=== PATIENT | female | born 1985 | race Caucasian/White ===

== ENCOUNTER 2018-01-08 23:25 | Emergency (ER) | payer OTHER ==
[2018-01-08 23:31] VITALS: BP 108/67
[2018-01-09] MEDS ORDERED: TETRACAINE HCL 0.5% OPH SOLN 2 ML OD ONE (00:52)
[2018-01-09] MEDS ORDERED: ERYTHROMYCIN 0.5% OPH OINTMENT 3.5 GM TUBE OS ONE (01:05)
--- NOTE | 2018-01-09 01:09 | ER Document Report ---
ED General - General Chief Complaint: Eye Injury Stated Complaint: EYE PAIN Time Seen by Provider: 01/09/18 00:44 Notes: Patient is a 32-year-old female who presents with complaints of accidentally getting water in her left eye. She immediately flushed the mortar out. She has some redness and irritation to the eye since then. She denies any other injuries or complaints. She said she has a little bit of blurred vision on the left lateral aspect of her visual field. She does not wear contacts. - Related Data Allergies/Adverse Reactions: No Known Allergies Allergy (Unverified 01/08/18 23:28) Past Medical History - Social History Smoking Status: Never Smoker Frequency of alcohol use: None Drug Abuse: None Family History: Reviewed & Not Pertinent Review of Systems - Review of Systems Notes: My Normal Review Basic REVIEW OF SYSTEMS: CONSTITUTIONAL : Denies fever, chills, or sweats. Denies recent illness. EENT: Left eye pain NEUROLOGICAL: Denies headache. ALL OTHER SYSTEMS REVIEWED AND NEGATIVE. Physical Exam - Vital signs Vitals: Temp Pulse Resp BP Pulse Ox 98.5 F 70 18 108/67 98 01/08/18 23:30 01/08/18 23:30 01/08/18 23:30 01/08/18 23:30 01/08/18 23:30 - Notes Notes: General Appearance: Well nourished, alert, cooperative, no acute distress, no obvious discomfort. Well-appearing. Vitals: reviewed, See vital signs table. Head: no swelling or tenderness to the head Eyes: PERRL, EOMI, right conjunctival is normal-appearing. Patient has mild erythema to the left conjunctival. Slit lamp examination does not show any evidence of foreign body. Corneas clear. Fluorescein staining does not show any evidence of significant abrasion or ulceration. PH of the left eye is between 7 and 8. Neuro: speech clear, oriented x 3, normal affect, responds appropriately to questions. Course - Re-evaluation Re-evalutation: 01/09/18 04:02 I the patient flushed her eyes several times in the ER. I checked her pH before she flushed her eyes and the pH was between 7 and 8. Denies any uptake in forcing staining. Patient's visual acuity does not have any concerning findings. I will have her follow-up with ophthalmology on Thursday. I will give her erythromycin ointment to use in her eye to help prevent infection. Patient encouraged to return to ER if she has worsening eye pain, increasing redness, abnormal discharge from the eye, or she has any further concerns. Patient agrees with plan and will be discharged home. Dictation of this chart was performed using voice recognition software; therefore, there may be some unintended grammatical errors. 01/09/18 04:08 - Vital Signs Vital signs: Temp Pulse Resp BP Pulse Ox 98.5 F 70 18 108/67 98 01/08/18 23:30 01/08/18 23:30 01/08/18 23:30 01/08/18 23:30 01/08/18 23:30 Discharge - Discharge Clinical Impression: Eye injury Qualifiers: Encounter type: initial encounter Laterality: left Qualified Code(s): S05.92XA - Unspecified injury of left eye and orbit, initial encounter Condition: Good Disposition: HOME, SELF-CARE Additional Instructions: Please apply a small amount of erythromycin ointment to your left eye 5 times a day for the next 5 days. Call the ophthamologist office thursday morning to make a follow up appointment on Thursday or Thursday. please return tot ER if you have increasing redness in your eye, abnormal drainage from your eye, or if you feel unwell. I have provided the phone number to two ophthamologists (Dr. Benton and Dr. Alvarado). Referrals: DAILY ALVARADO MD [ACTIVE STAFF] - 01/11/18 ULI BENTON DO [ACTIVE STAFF] - 01/11/18
[2018-01-09] MEDS ORDERED: ERYTHROMYCIN 0.5% OPH OINT 1 GM UNIT DOSE ONE (01:20)
[2018-01-09] MEDS ORDERED: ERYTHROMYCIN 0.5% OPH OINT 1 GM UNIT DOSE OS ONE (01:21)
== END 2018-01-09 01:30 | disposition home or self-care (01) ==
LOC: ER 23:25
DX: S05.92XA Unspecified injury of left eye and orbit, initial encounter (principal); X58.XXXA Exposure to other specified factors, initial encounter; H53.8 Other visual disturbances; H57.12 Ocular pain, left eye
CPT/HCPCS: 99283; J3490

== ENCOUNTER 2018-10-29 08:44 | Emergency (ER) | payer OTHER ==
[2018-10-29] MEDS ORDERED: ACETAMINOPHEN 325 MG TABLET PO ONE (10:13)
--- NOTE | 2018-10-29 10:33 | RADIOLOGY REPORT (SQ) ---
EXAM DESCRIPTION: ANKLE LEFT COMPLETE COMPLETED DATE/TIME: 10/29/2018 10:24 am REASON FOR STUDY: pain COMPARISON: None. NUMBER OF VIEWS: Three views. TECHNIQUE: AP, lateral, and oblique radiographic images acquired of the left ankle. LIMITATIONS: None. FINDINGS: MINERALIZATION: Normal. BONES: No acute fracture or dislocation. No worrisome bone lesions. JOINTS: No effusions. SOFT TISSUES: No soft tissue swelling. No foreign body. OTHER: No other significant finding. IMPRESSION: NEGATIVE STUDY OF THE LEFT ANKLE. NO RADIOGRAPHIC EVIDENCE OF ACUTE INJURY. TECHNICAL DOCUMENTATION: JOB ID: [id number]- All Rights Reserved Reading location - IP/workstation name: [email or web address]
--- NOTE | 2018-10-29 10:50 | ER Document Report ---
HPI - HPI Patient complains to provider of: Left ankle pain Time Seen by Provider: 10/29/18 10:12 Pain Level: 2 Context: Patient is a otherwise healthy 33-year-old female presents to the emergency department for left ankle pain. Patient states yesterday she was running when she feels as though she inverted her left ankle. States she felt a pop. Initially thought nothing of it but the pain has persisted which presents her to the emergency room. Patient denies any pain or injury to her left knee left hip, falling on her back or head. Patient's pain is generally in her left lateral malleolus. - CONSTITUTIONAL Constitutional: DENIES: Fever, Chills - REPRODUCTIVE LMP: 10/23/18 Reproductive: DENIES: : - MUSCULOSKELETAL Musculoskeletal: REPORTS: Extremity pain - left ankle Past Medical History - General Information source: Patient - Social History Smoking Status: Never Smoker Chew tobacco use (# tins/day): No Frequency of alcohol use: None Drug Abuse: None Family History: Reviewed & Not Pertinent Patient has suicidal ideation: No Patient has homicidal ideation: No Renal/ Medical History: Denies: Hx Peritoneal Dialysis Psychiatric Medical History: Reports: Hx Attention Deficit Hyperactivity Disorder, Hx Depression Vertical Provider Document - CONSTITUTIONAL Agree With Documented VS: Yes Notes: GENERAL: Alert, interacts well. No acute distress. HEAD: Normocephalic, atraumatic. EYES: Pupils equal, round, and reactive to light. Extraocular movements intact. ENT: Oral mucosa moist, tongue midline. NECK: Full range of motion. Supple. Trachea midline. LUNGS: Clear to auscultation bilaterally, no wheezes, rales, or rhonchi. No respiratory distress. HEART: Regular rate and rhythm. No murmur ABDOMEN: Soft, non-tender. Non-distended. Bowel sounds present in all 4 quadrants. EXTREMITIES: Moves all 4 extremities spontaneously. No edema, normal radial and dorsalis pedis pulses bilaterally. No cyanosis. No edema or erythema noted, pain upon palpation left lateral malleolus. Capillary refill less than 2 seconds distally bilateral lower extremities. No pain in patient's left hip, knee. BACK: no cervical, thoracic, lumbar midline tenderness. No saddle anesthesia, normal distal neurovascular exam. NEUROLOGICAL: Alert and oriented x3. Normal speech. cranial nerves II through XII grossly intact PSYCH: Normal affect, normal mood. SKIN: Warm, dry, normal turgor. No rashes or lesions noted. - INFECTION CONTROL TRAVEL OUTSIDE OF THE [place] IN LAST 30 DAYS: No Course - Re-evaluation Re-evalutation: 10/29/18 10:48 Patient's x-rays revealed no signs of fractures. Discussed likely strain or sprain. Discussed following up with primary care provider and Ortho if needed. Ankle stirrup and crutches given in the emergency department. - Vital Signs Vital signs: Temp Pulse Resp BP Pulse Ox 98.5 F 67 17 122/71 97 10/29/18 08:55 10/29/18 08:55 10/29/18 08:55 10/29/18 08:55 10/29/18 08:55 Discharge - Discharge Clinical Impression: Left ankle injury Qualifiers: Encounter type: initial encounter Qualified Code(s): S99.912A - Unspecified injury of left ankle, initial encounter Condition: Stable Disposition: HOME, SELF-CARE Instructions: Ice & Elevation ([facility]), Ankle Stirrup Splint ([facility]), Sprained Ankle ([facility]), Use of Crutches ([facility]) Additional Instructions: Your x-ray does not show any acute fracture. You have a sprained ankle. Keep the area elevated, apply ice 20 minutes every 2 hours, and use crutches as needed. You should take ibuprofen 600 mg every 6 hours as needed for pain. Please return if you have worsening pain and swelling, fever greater than 101, you notice spreading redness from the area, or have any other symptoms that are concerning to you. Please follow-up with orthopedic surgery if your symptoms have not improved in the next 2-3 weeks. Referrals: ZENON URIBE, [ACTIVE STAFF] - Follow up as needed
[2018-10-29 11:16] VITALS: BP 126/74
== END 2018-10-29 11:10 | disposition home or self-care (01) ==
LOC: ER 08:44
DX: S99.912A Unspecified injury of left ankle, initial encounter (principal); M25.572 Pain in left ankle and joints of left foot; X50.1XXA Overexertion from prolonged static or awkward postures, initial encounter
CPT/HCPCS: 99283; 73610; L1902

== ENCOUNTER 2019-09-14 17:12 | Emergency (ER) | payer OTHER ==
[2019-09-14 17:21] VITALS: BP 117/63
--- NOTE | 2019-09-14 18:14 | ER Document Report ---
ED Medical Screen (RME) - General Stated Complaint: BACK/ABDOMINAL PAIN/NAUSEA Time Seen by Provider: 09/14/19 18:05 Mode of Arrival: Ambulatory Information source: Patient Notes: 34-year-old female presents approximately 10 to 11 weeks G5, P3 with complaints of left-sided flank pain left lower quad abdominal pain for the last few days. Denies fever vomiting diarrhea but does complain of some nausea. Reports she took Tylenol yesterday without relief of symptoms. Reports history of kidney stones but has not had one in 10 years. Denies pain with void denies vaginal bleeding. She reports normal vaginal discharge. has been confirmed by ultrasound. Next OB appointment is next week at [facility]. Patient declined antinausea medicine, declined Tylenol. I have greeted and performed a rapid initial assessment of this patient. A comprehensive ED assessment and evaluation of the patient, analysis of test results and completion of the medical decision making process will be conducted by additional ED providers. TRAVEL OUTSIDE OF THE [place] IN LAST 30 DAYS: No - Related Data Allergies/Adverse Reactions: No Known Allergies Allergy (Verified 09/14/19 18:04) Past Medical History Renal/ Medical History: Denies: Hx Peritoneal Dialysis Psychiatric Medical History: Reports: Hx Attention Deficit Hyperactivity Disorder, Hx Depression Physical Exam - Vital signs Vitals: Temp Pulse Resp BP Pulse Ox 99.1 F 68 16 117/63 100 09/14/19 17:18 09/14/19 17:18 09/14/19 17:18 09/14/19 17:18 09/14/19 17:18 Course - Vital Signs Vital signs: Temp Pulse Resp BP Pulse Ox 99.1 F 68 16 117/63 100 09/14/19 17:18 09/14/19 17:18 09/14/19 17:18 09/14/19 17:18 09/14/19 17:18
[2019-09-14 18:26] LABS: ABSOLUTE EOSINOPHILS # (AUTO) 0.1 10^3/uL (0.0-0.6); ABSOLUTE LYMPHOCYTES (AUTO) 2.5 10^3/uL (0.5-4.7); ABSOLUTE MONOCYTES (AUTO) 0.4 10^3/uL (0.1-1.4); ABSOLUTE NEUT (AUTO) 4.5 10^3/uL (1.7-8.2); BASOPHILS % (AUTO) 0.6 % (0-2); EOSINOPHILS % (AUTO) 1.1 % (0-6); HEMATOCRIT 36.5 % (36.0-47.0); HEMOGLOBIN 12.6 g/dL (12.0-15.5); LYMPHOCYTES % (AUTO) 33.2 % (13-45); MEAN CORPUSCULAR HEMOGLOBIN 31.2 pg (27.0-33.4); MEAN CORPUSCULAR HGB CONC 34.6 g/dL (32.0-36.0); MEAN CORPUSCULAR VOLUME 90 fl (80-97); MONOCYTES % (AUTO) 4.9 % (3-13); PLATELET COUNT 179 10^3/uL (150-450); RED BLOOD COUNT 4.05 10^6/uL (3.72-5.28); RED CELL DISTRIBUTION WIDTH 13.6 % (11.5-14.0); SEGMENTED NEUTROPHILS % (AUTO) 60.2 % (42-78); TOTAL CELLS COUNTED % (AUTO) 100 %; WHITE BLOOD COUNT 7.5 10^3/uL (4.0-10.5)
[2019-09-14 18:30] LABS: APPEARANCE,URINE CLEAR; BILIRUBIN,URINE NEGATIVE (NEGATIVE); COLOR,URINE STRAW; GLUCOSE, URINE NEGATIVE (NEGATIVE); KETONES,URINE NEGATIVE (NEGATIVE); LEUKOCYTE ESTERASE,URINE TRACE (NEGATIVE); NITRITE,URINE NEGATIVE (NEGATIVE); PROTEIN,URINE NEGATIVE (NEGATIVE); UROBILINOGEN,URINE NEGATIVE mg/dL (<2.0)
[2019-09-14 18:47] LABS: ADD MANUAL MICROSCOPIC YES; AMORPHOUS SEDIMENT,UR TRACE; WBC,URINE RARE /HPF
[2019-09-14 18:48] LABS: ALBUMIN 4.2 g/dL (3.5-5.0); ALKALINE PHOSPHATASE 31 U/L (38-126); ANION GAP 9 (5-19); ASPARTATE AMINO TRANSFERASE 19 U/L (14-36); BILIRUBIN,DIRECT 0.2 mg/dL (0.0-0.4); BILIRUBIN,TOTAL 0.2 mg/dL (0.2-1.3); BLOOD UREA NITROGEN 11 mg/dL (7-20); CALCIUM 9.3 mg/dL (8.4-10.2); CARBON DIOXIDE 23 mmol/L (22-30); CHLORIDE 103 mmol/L (98-107); GLUCOSE 85 mg/dL (75-110); POTASSIUM 3.9 mmol/L (3.6-5.0)
--- NOTE | 2019-09-14 19:30 | RADIOLOGY REPORT (SQ) ---
EXAM DESCRIPTION: U/S RETROPERITON LTD COMPLETED DATE/TIME: 09/14/2019 7:17 pm REASON FOR STUDY: flank pain hx kidney stone, COMPARISON: None. TECHNIQUE: Dynamic and static grayscale images acquired of the kidneys and bladder and recorded on P ACS. Additional selected color Doppler and spectral images recorded. LIMITATIONS: None. FINDINGS: RIGHT KIDNEY: Normal size. Normal echogenicity. No solid or suspicious masses. No hydrone phrosis. No calcifications. LEFT KIDNEY: Normal size. Normal echogenicity. No solid or suspicious masses. No hydronephrosis. No calcifications. BLADDER: No masses. OTHER FINDINGS: No other significant finding. IMPRESSION: NORMAL RENAL AND BLADDER ULTRASOUND. COMMENT: The degree of renal pelvocalyceal dilation is correlated with the patient's current stage o f . TECHNICAL DOCUMENTATION: JOB ID: [id number] 2010 [employer]- All Rights Reserved Reading location - IP/workstation name: [email or web address]
--- NOTE | 2019-09-14 19:34 | RADIOLOGY REPORT (SQ) ---
EXAM DESCRIPTION: U/S [id number] TRNABD 1GES W/ODOP COMPLETED DATE/TIME: 09/14/2019 7:17 pm REASON FOR STUDY: , abd pain COMPARISON: None. TECHNIQUE: Transabdominal static and realtime grayscale images acquired of the pelvis. Additional se lected spectral and color Doppler images recorded. All images stored on PACs. bHCG: Not available. CLINICAL DATES: Not Available. LIMITATIONS: None. FINDINGS: FETUS: Single Living intrauterine . ULTRASOUND EGA: 11 weeks 2 days ULTRASOUND BRETT: 04/02/2020 EFW: Not applicable less than 20 weeks. CRL: 4.6 cm. FHR: 171 beats per minute. SURVEY: No visualized anomalies. AMNIOTIC FLUID: Adequate amount. PLACENTA: Not yet developed due to early gestation. SUBCHORIONIC BLEED: No. SIZE OF BLEED: Not applicable. UTERUS: No masses. No anomalies. CERVICAL LENGTH: 2.2 cm. Closed. RIGHT ADNEXA: Ovary not identified due to poor acoustical window. No adnexal free fluid. No adnexal masses. LEFT ADNEXA: Normal ovary with normal vascular flow. No adnexal free fluid. No adnexal masses. FREE FLUID: None. OTHER: No other significant finding. IMPRESSION: LIVING INTRAUTERINE . EGA 11 weeks 2 days. Trimester of : First trimester - 0 to 13 weeks. TECHNICAL DOCUMENTATION: JOB ID: [id number] 2010 [employer]- All Rights Reserved rev Reading location - IP/workstation name: [email or web address]
== END 2019-09-14 21:52 | disposition left against medical advice (07) ==
LOC: ER 17:12
DX: O26.91 Pregnancy related conditions, unspecified, first trimester (principal); R10.32 Left lower quadrant pain; R10.9 Unspecified abdominal pain; R11.0 Nausea; Z3A.10 10 weeks gestation of pregnancy
CPT/HCPCS: 36415; 76775; 76801; 80053; 81001; 84702; 85025; 99281